=== PATIENT | female | born 1960 | race Caucasian/White ===

== ENCOUNTER → 2020-05-13 08:11 | Outpatient (BNVA) | payer OTHER, SELFPAY | PROVIDERS: PCP Internal Medicine; Visit Provider Obstetrics & Gynecology ==

== ENCOUNTER 2020-08-03 07:50 | Outpatient (REF) | payer OTHER, SELFPAY ==
--- NOTE | ~2020-08-03 | MM_ITS ---
EXAMINATION: MM SCREENING DIGITAL BREAST TOMOSYNTHESIS, BILATERAL CLINICAL INFORMATION: Screening. Asymptomatic. The lifetime risk of breast cancer based on the Tyrer-Cuzick Model is 9%. COMPARISON: Mammography: 05/19/2019, 03/12/2018, 02/13/2017 TECHNIQUE: Digital breast tomosynthesis is performed in both the craniocaudal and mediolateral oblique views along with computer-aided detection (CAD). Synthesized 2D images are generated from the tomosynthesis. Additional right MLO view is provided. FINDINGS: There are scattered areas of fibroglandular density (ACR BI-RADS breast composition Category b). There are no significant masses, abnormal calcifications, or other abnormalities. Parenchymal pattern is similar to prior exams. No developing density. No significant changes. MM/MM tomosynthesis screening BI IMPRESSION: No mammographic evidence of malignancy. ASSESSMENT: BI-RADS 1: Negative RECOMMENDATION: Routine annual mammography screening. This patient's information was entered into a reminder system with a target due date for their next mammogram.
== END 2020-08-03 07:51 | disposition home or self-care (01) ==
LOC: HO.MAMMO 07:50
PROVIDERS: Visit Provider Obstetrics & Gynecology
DX: Z12.31 Encounter for screening mammogram for malignant neoplasm of breast (principal)
CPT/HCPCS: 77063; 77067

== ENCOUNTER 2021-06-05 08:23 | Outpatient (REF) | payer OTHER, SELFPAY ==
[2021-06-07 09:51] LABS: HPV mRNA E6/E7 rflx Not Detected (Not Detected)
== END 2021-06-05 08:24 | disposition home or self-care (01) ==
LOC: HO.LAB 08:23
PROVIDERS: PCP Internal Medicine; Visit Provider Obstetrics & Gynecology
DX: Z01.419 Encounter for gynecological examination (general) (routine) without abnormal findings (principal); Z11.51 Encounter for screening for human papillomavirus (HPV)
CPT/HCPCS: 87624; 88142

== ENCOUNTER 2021-08-09 07:46 | Outpatient (REF) | payer OTHER, SELFPAY ==
--- NOTE | ~2021-08-09 | MM_ITS ---
EXAMINATION: MM SCREENING DIGITAL BREAST TOMOSYNTHESIS, BILATERAL CLINICAL INFORMATION: Screening. Asymptomatic. The lifetime risk of breast cancer based on the Tyrer-Cuzick Model is 9%. COMPARISON: Mammography: 08/03/2020, 05/19/2019, 03/12/2018 TECHNIQUE: Digital breast tomosynthesis is performed in both the craniocaudal and mediolateral oblique views along with computer-aided detection (CAD). Synthesized 2D images are generated from the tomosynthesis. FINDINGS: There are scattered areas of fibroglandular density (ACR BI-RADS breast composition Category b). There are no significant masses, abnormal calcifications, or other abnormalities. Parenchymal pattern is similar to prior exams. There is a probable intramammary node again seen mid 5:30 right breast. The axilla and skin contours are unremarkable. MM/MM tomosynthesis screening BI IMPRESSION: No mammographic evidence of malignancy. ASSESSMENT: BI-RADS 2: Benign RECOMMENDATION: Routine annual mammography screening. This patient's information was entered into a reminder system with a target due date for their next mammogram.
== END 2021-08-09 07:47 | disposition home or self-care (01) ==
LOC: HO.MAMMO 07:46
PROVIDERS: Visit Provider Obstetrics & Gynecology
DX: Z12.31 Encounter for screening mammogram for malignant neoplasm of breast (principal)
CPT/HCPCS: 77063; 77067

== ENCOUNTER → 2022-07-13 07:56 | Outpatient (BNVA) | payer OTHER, SELFPAY | PROVIDERS: PCP Family Medicine; Visit Provider Obstetrics & Gynecology | DX: Z13.89 Encounter for screening for other disorder (principal) ==

== ENCOUNTER 2022-08-15 07:40 | Outpatient (REF) | payer OTHER, SELFPAY ==
--- NOTE | ~2022-08-15 | MM_ITS ---
EXAMINATION: MM SCREENING DIGITAL BREAST TOMOSYNTHESIS, BILATERAL CLINICAL INFORMATION: Screening. Asymptomatic. The lifetime risk of breast cancer based on the Tyrer-Cuzick Model is 9%. COMPARISON: Mammography: 08/09/2021, 08/03/2020, 05/19/2019 TECHNIQUE: Digital breast tomosynthesis is performed in both the craniocaudal and mediolateral oblique views along with computer-aided detection (CAD). Synthesized 2D images are generated from the tomosynthesis. Additional right CC view is provided. FINDINGS: There are scattered areas of fibroglandular density (ACR BI-RADS breast composition Category b). There are no significant masses, abnormal calcifications, or other abnormalities. Parenchymal pattern is similar to prior studies. There is no developing density or architectural abnormality. The axilla and skin contours are unremarkable. No significant changes. MM/MM tomosynthesis screening BI IMPRESSION: No mammographic evidence of malignancy. ASSESSMENT: BI-RADS 1: Negative RECOMMENDATION: Routine annual mammography screening. This patient's information was entered into a reminder system with a target due date for their next mammogram.
== END 2022-08-15 07:41 | disposition home or self-care (01) ==
LOC: HO.MAMMO 07:40
PROVIDERS: PCP Family Medicine; Visit Provider Family Medicine
DX: Z12.31 Encounter for screening mammogram for malignant neoplasm of breast (principal)
CPT/HCPCS: 77063; 77067

== ENCOUNTER 2023-07-22 07:55 | Outpatient (AMB) | payer OTHER, SELFPAY ==
--- NOTE | 2023-07-22 08:01 | MHC.OFFVIS ---
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 No complaints. Last Pap/HPV was negative in 06/17 Last Mammogram was BI-RADS 1 in 08/16, the patient is scheduled for next screening mammogram in 08/17 Last Colonoscopy was at the age of 53, the patient will be due for a next screening colonoscopy next year [facility] Medical History Dyslipidemia Diabetes HTN (hypertension) Surgical History History of surgical removal of meniscus of knee History of hysteroscopy History of Family History Father Diabetes HTN (hypertension) Mother Diabetes Social History Household Members: Spouse Housing: House Alcohol intake: current Alcohol intake frequency: holidays/special occasions only Patient Tobacco Use Status: Current someday Tobacco user Cigarettes Per Day: 5 Years Smoked: 35 Current occupational status: employed 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 Sexually active: Yes Sexual orientation: Straight/Heterosexual Gender identity: Female Female Reproductive History Menstrual Age of Menarche: 13 Total pregnancies: 1 Full term: 1 Number of Living Children: 1 Date of last pap smear: 06/06/21 Date of Mammogram: 08/15/22 Review of Systems Const All systems reviewed & are unremarkable except as noted in HPI and below Card Reports as per HPI Resp Reports as per HPI GI Reports as per HPI and Reports no additional complaints Reports as per HPI Physical Exam Vital Signs: BMI result Body Mass Index 45.7 Const General: cooperative, healthy appearing and comfortable Chest Chest palpation & inspection: normal inspection of the chest and normal palpation of entire chest wall Breast/axilla inspection: normal inspection of the breasts and normal inspection of the axillae Breast/axilla palpation: normal palpation of the breasts, normal palpation of the axillae and no axillary lymphadenopathy Resp Effort & Inspection: normal respiratory effort Auscultation: clear to auscultation bilaterally Percussion: percussion normal Cardio Palpation: normal PMI Rate: regular rate Rhythm: regular rhythm Heart sounds: no murmurs and no rubs Peripheral pulses: Peripheral pulses 2+ throughout GI Inspection: Yes normal to inspection Palpation (GI): Soft to palpation, nontender, no guarding, not rigid and No hepatosplenomegaly present Percussion: Yes normal to percussion Auscultation: normal bowel sounds Rectal Exam - Female: deferred General: Yes bladder normal to palpation External Female Exam: No lesion Speculum Exam - Vagina: normal appearance of the vagina, normal palpation, normal vaginal discharge and not erythematous Speculum Exam - Cervix: normal appearance of the cervix and normal palpation Bimanual exam- vagina & uterus: normal bimanual exam, normal palpation, uterine size normal, bladder normal to palpation, consistency normal and normal palpation Bimanual Exam- Adnexa, other: normal adnexae, no masses and no tenderness Assessment & Plan Assessment & Plan (1) Well woman exam: Code(s): Z01.419 - Encounter for gynecological examination (general) (routine) without abnormal findings Plan: Co testing not indicated this. Counseled the patient about the recommended dietary allowance of 1200 mg of Calcium & 600 IU of vitamin D. Mammogram scheduled for 08/17. The patient was instructed to perform monthly self-breast exams and schedule annual exam in a year. All questions answered and the patient verbalized understanding. Coding Level of Care Code Est Pt Prev Care 40-64y(95070) Diagnoses Well woman exam Z01.419
[2023-07-22 08:06] VITALS: BP 120/70; BMI 45.7
== END 2023-07-22 08:25 | disposition home or self-care (01) ==
PROVIDERS: PCP Family Medicine; Visit Provider Obstetrics & Gynecology
DX: Z01.419 Encounter for gynecological examination (general) (routine) without abnormal findings (principal)
CPT/HCPCS: 99396

== ENCOUNTER → 2023-07-22 07:55 | Outpatient (BNVA) | payer OTHER, SELFPAY | PROVIDERS: PCP Family Medicine; Visit Provider Obstetrics & Gynecology ==

== ENCOUNTER 2023-08-20 07:15 | Outpatient (REF) | payer OTHER, SELFPAY | END 2023-08-20 07:16 | disposition home or self-care (01) | LOC: HO.MAMMO 07:15 | PROVIDERS: PCP Family Medicine; Visit Provider Family Medicine | DX: Z12.31 Encounter for screening mammogram for malignant neoplasm of breast (principal) | CPT/HCPCS: 77063; 77067 ==

== ENCOUNTER → 2023-08-20 07:45 | Outpatient (BNV) | payer OTHER, SELFPAY | PROVIDERS: PCP Family Medicine; Visit Provider Radiology Diagnostic Radiology | DX: Z12.31 Encounter for screening mammogram for malignant neoplasm of breast (principal) | CPT/HCPCS: 77063; 77067 ==

== ENCOUNTER 2024-08-31 07:19 | Outpatient (REF) | payer OTHER, SELFPAY ==
--- OUTSIDE RECORDS SUMMARY | 2024-08-31 07:21 | XMS_ITS | Clinical Summary ---
Author Organization [facility] Address [address] [place] [address] Phone Care Team Providers Care Licensed Clinician Name Role Phone Franky Guerrero MD Primary Care Pr ovider Allergies No known active allergies Medications medical supply, miscellaneous (MISCELLANEOUS MEDICAL SUPPLY MISC) CPAP Inhale into the lungs. Regional pressure 8-12 Active fexofenadine (MAZIN) 180 mg tablet Take 1 Tablet by mouth daily. Active metFORMIN XR (GLUCOPHAGE-XR) 500 mg 24 hr tabletIndications :Type 2 diabetes mellitus without complications ([facility] V24, [facility] V28) TAKE 2 TABLETS BY MOUTH DAILY (WITH BREAKFAST). 180 tablet 1 06/27/19 25 Active tirzepatide, weight loss, (Zepbound) 2.5 mg/0.5 mL injectionIndicati ons:Type 2 diabetes mellitus with diabetic microalbuminuria, without long-term current use of insulin ([facility] V24, [facility] V28),Morbid obesity with BMI of 45.0-49.9, adult ([facility] V24, [facility] V28),Obstructive sleep apnea Inject 0.5 mL (2.5 mg total) under the skin every 7 (seven) days. 2 mL 08/17/19 25 Active fluticasone propionate (FLONASE) 50 mcg/actuation nasal sprayIndications: Allergic rhinitis, unspecified seasonality, unspecified trigger Administer 1 spray into each nostril 2 (two) times a day. Shake gently. Before first use, prime pump. After use, clean tip and replace cap. 16 g 1 08/17/19 25 026 Active atorvastatin (LIPITOR) 40 mg tabletIndications :Hyperlipidemia with target LDL less than 70 Take 1 tablet (40 mg total) by mouth at bedtime. at bedtime. 90 tablet 1 08/17/19 25 Active lisinopril (PRINIVIL,ZESTRIL ) 40 mg tabletIndications :Primary hypertension Take 1 tablet (40 mg total) by mouth 1 (one) time each day. 90 each 1 08/17/19 25 Active atorvastatin (LIPITOR) 40 mg tabletIndications :Hyperlipidemia with target LDL less than 70 Take 1 tablet (40 mg total) by mouth at bedtime. at bedtime. 90 tablet 1 03/29/20 24 025 Discontin ued(Reord er) bisacodyL (DULCOLAX) 5 mg EC tablet Take 2 tablets by mouth right before beginning bowel prep. See instructions provided by the office 2 tablet 07/14/19 25 025 Discontin ued(Thera py completed ) polyethylene glycol (Golytely) 236-22.74-6.74 -5.86 gram solution Take 4L by mouth once for one dose. May substitue any PEG. Starting at 6PM the night before your procedure drink 1 8oz glasses at your own pace until you complete half of the gallon. Finish 2nd half of the gallon 5 hours before your procedure. 4000 mL 07/14/19 25 025 Discontin ued(Thera py completed ) lisinopril (PRINIVIL,ZESTRIL ) 40 mg tablet Take 1 tablet (40 mg total) by mouth 1 (one) time each day. 90 each 1 07/14/19 25 025 Discontin ued(Reord er) Active Problems Problem Noted Date Diagnosed Date Systolic murmur 08/16/2024 Assessment & Plan (08/16/2024 10:09 AM EDT): Echocardiogram is as above and within normal limits Morbid obesity with BMI of 4 5.0-49.9, adult (CMS/HCC V24, CMS/HCC V28) 04/17/2024 Assessment & Plan (08/16/2024 10:09 AM EDT): Start Zepbound weekly Orders: tirzepatide, weight loss, (Zepbound) 2.5 mg/0.5 mL injection; Inject 0.5 mL (2.5 mg total) under the skin every 7 (seven) days. Assessment & Plan (04/17/2024 9:01 AM EST): As above Orders: Thyroid stimulating hormone with reflex to free t4 and free t3; Future Tobacco use disorder 04/17/2024 Assessment & Plan (08/16/2024 10:09 AM EDT): Smoking cessation counseling provided. She plans to quit cigarettes cold turkey very soon Assessment & Plan (04/17/2024 9:01 AM EST): Smoking cessation counseling provided CKD (chronic kidney disease) stage 2, GFR 60-89 ml/min 01/07/2022 Assessment & Plan (08/16/2024 10:09 AM EDT): Stable. Last GFR was 63. Will update labs Orders: Comprehensive metabolic panel; Future Assessment & Plan (04/17/2024 9:01 AM EST): Stable. Last Gfr 63 in december Hyperlipidemia with target LDL less than 70 07/26 Assessment & Plan (08/16/2024 10:09 AM EDT): Continue atorvastatin. Orders: Lipid panel with reflex to direct LDL; Future Comprehensive metabolic panel; Future atorvastatin (LIPITOR) 40 mg tablet; Take 1 tablet (40 mg total) by mouth at bedtime. at bedtime. Assessment & Plan (04/17/2024 9:01 AM EST): Her Last LDL was 56. Continue Atorvastatin 40mg daily. Type 2 diabetes mellitus wit h diabetic microalbuminuria, without long-term current use of insulin ([facility] V24, [facility] V28) 08/17/2018 Assessment & Plan (08/16/2024 10:09 AM EDT): Last A1c was 7.2. Her diabetes can be better controlled For now, continue metformin 1000 mg daily. Will start Zepbound weekly to help with weight loss and also sleep apnea. Counseled on the possible side effects of the medication If she is unable to get the medication, she will let me know and metformin will be increased Orders: Hemoglobin A1c; Future tirzepatide, weight loss, (Zepbound) 2.5 mg/0.5 mL injection; Inject 0.5 mL (2.5 mg total) under the skin every 7 (seven) days. Assessment & Plan (04/17/2024 9:01 AM EST): Continue metformin 1000mg daily Start some routine exercise Continue to try to follow diabetic diet Advised that if A1c is still greater than 7, we can consider wegovy which will also be helpful for weight loss Orders: Hemoglobin A1c; Future Diabetes Foot Exam Obstructive sleep apnea 09/02/2017 Overview (03/10/2024): [facility] Home Polysomnogram: Date 08/29/2017; AHI 21, Unclassified apneas 42; Obstructive apneas 0; Central apneas 0; Mixed apneas 0; hypopneas 99; average oxygen saturation 91% (lowest 69% with saturations <88% for 5% or more of study) [facility] Polysomnogram treatment study. Date 11/11/2017. SE 86 % SM 90 %; spent 41 % of the study in REM. On CPAP @ 10; RDI 2 (AHI 2), Central apneas 1; Obstructive apneas 0; Mixed apneas 0; hypopneas 0; RERAs 0; and, average oxygen saturation was 91%. For the entire study, PLMs ~46. - Obstructive Sleep Apnea - moderate; mostly hypopneas with unclassified apneas; without sleep related hypoventilation by 2018 home polysomnogram. Assessment & Plan (08/16/2024 10:09 AM EDT): Continue CPAP nightly. Start Zepbound weekly Orders: tirzepatide, weight loss, (Zepbound) 2.5 mg/0.5 mL injection; Inject 0.5 mL (2.5 mg total) under the skin every 7 (seven) days. Assessment & Plan (04/17/2024 9:01 AM EST): Continue CPAP nightly Hypertension 06/24/2009 Assessment & Plan (08/16/2024 10:09 AM EDT): Blood pressure is well-controlled. Continue lisinopril Orders: lisinopril (PRINIVIL,ZESTRIL) 40 mg tablet; Take 1 tablet (40 mg total) by mouth 1 (one) time each day. Assessment & Plan (04/17/2024 9:01 AM EST): Well controlled. Continue lisinopril 40mg daily Allergic rhinitis 10/04/2007 Assessment & Plan (08/16/2024 10:09 AM EDT): Start Flonase twice daily. Continue Mazin daily Orders: fluticasone propionate (FLONASE) 50 mcg/actuation nasal spray; Administer 1 spray into each nostril 2 (two) times a day. Shake gently. Before first use, prime pump. After use, clean tip and replace cap. Assessment & Plan (04/17/2024 9:01 AM EST): Stable. Continue mazin PRN Resolved Problems Problem Noted Date Diagnosed Date Resolved Date Obesity (BMI 30-39.9) 02/18/20162023 Encounters Date Type Department Care Team Description 08/16/2024 9:45 AM EDT Office Visit Adult Medicine [address] [phone] Franky Guerrero MD Type 2 diabetes mellitus with diabetic microalbuminuria, without long-term current use of insulin ([facility] V24, [facility] V28) (Primary Dx); Morbid obesity with BMI of 45.0-49.9, adult (CMS/HCC V24, CMS/HCC V28); Hyperlipidemia with target LDL less than 70; Primary hypertension; Tobacco use disorder; Obstructive sleep apnea; Allergic rhinitis, unspecified seasonality, unspecified trigger; CKD (chronic kidney disease) stage 2, GFR 60-89 ml/min; Chronic cough; Dyspnea on exertion; Systolic murmur 07/27/2024 12:07 PM EDT Anesthesia Event [facility] [address] [place] [address] Joey Patel MD 07/27/2024 10:55 AM EDT - 07/27/2024 11:59 PM EDT Hospital Encounter [facility] [address] [place] [address] Reyna Higgins MD Steele, Matthew G, CRNA Colon cancer screening Discharge Disposition: Home or Self Care 07/05/2024 3:00 PM EDT Ancillary Procedure [facility] [address] [place] [address] Systolic murmur from Last 3 Months Immunizations Name Administration Dates Next Due Influenza Quadravalent, MDCK , 0.5ml, preservative free (Flucelvax) 6mo and older 03/05/2023,01/23/2021,01/18/2020,2018 Influenza trivalent, 0.5mL, preservative free (Fluarix; FluLaval; Fluzone) ages 6mo and older (Afluria) 3 years and older 02/10/2024 Influenza trivalent, with preservative (Fluzone; Afluria) 6mo and older 01/30/2015,03/12/2014,03/27/2013,2009 Pneumococcal conjugate 20 va lent (Prevnar 20, PCV 20) 2mo and older 03/05/2023 Td Tetanus diptheria (Tdvax) 7yo and older 01/23/2021 Tdap Tetanus diptheria acell ular pertussis (Boostrix; Adacel) 7yo and older 12/25/2009 Surgical History Surgery Date Site/Laterality Comments SECTION 03/15/1993 PROCEDURE: CO DELIVERY ONLY; COMMENT: no complications COLONOSCOPY W/ POLYPECTOMY 02/05/2014 PROCEDURE: CO COLSC FLX W/RMVL OF TUMOR POLYP LESION SNARE TQ; COMMENT: 2 dimin polyps @20-22 cm - snared-> both hyperplastic OTHER SURGICAL HISTORY 05/18/2022 Right PROCEDURE: CO ARTHRS KNE SURG W/MENISCECTOMY MED/LAT W/SHVG; COMMENT: [facility]OS Medical History Medical History Date Comments Allergic rhinitis 10/04/2007 DX:Allergic rh initis Sleep apnea Hyperlipidemia Hypertension Diabetes mellitus ([facility] V24, [facility] V28) Family History Medical History Relation Name Comments Hypertension Father Lung cancer Father smoker Heart attack Mother age 58 Breast cancer Neg Hx Colon cancer Neg Hx Relation Name Status Comments Brother 1 Alive DMII Brother 2 Alive estranged Father 1997 - Bone Can cer; DMII, HTN Maternal Grandfather ? Maternal Grandmother ? Mother (Age 58) 1994 - [place] Paternal Grandfather ? Paternal Grandmother DMII Sister Alive A&W Son Alive A&W Social History Tobacco Use Types Packs/Day Years Used Date Smoking Tobacco: Every Day Cigarettes 0.2 42.3 Started: 04/26/1982 Smokeless Tobacco: Never Tobacco Cessation:Ready to Q uit: Not Asked; Counseling Given: Not Answered Alcohol Use Standard Drinks/Week Comments Yes 0 (1 standard drink = 0.6 oz pur e alcohol) Housing Instability Answer Date Recorde d Are you worried that in the next 2 months you may not have stable housing? No 04/10/2024 Food Access & Nutrition Answer Date Rec orded Do you have access to a vari ety of food including fruits and vegetables? Yes 04/10/2024 Access to Healthcare Answer Date Record ed Within the last 3 months, ho w many times did you visit the emergency department for your medical care? 0 04/10/2024 Health Literacy Answer Date Recorded How often do you need to hav e someone help you when you read instructions, pamphlets, or other written material from your doctor or pharmacy? Never 04/10/2024 Caregiver: How often do you need to have someone help you when you read instructions, pamphlets, or other written material from your doctor or pharmacy? Not on file 04/10/2024 Financial Risk Answer Date Recorded How hard is it for you to pa y for the very basics like food, housing, medical care, and air conditioning / heating? Patient declined 04/10/2024 Transportation Answer Date Recorded Has the lack of transportati on kept you from meetings, work, or from getting things needed for daily living? No Has the lack of transportati on kept you from medical appointments or from getting medications? No 04/10/2024 Social Isolation Answer Date Recorded How often do you feel lonely or isolated from th ose around you? Never 04/10/2024 Food Risk Answer Date Recorded Within the past 12 months we worried whether our food would run out before we got money to buy more. Never true 04/10/2024 Within the past 12 months th e food we bought just didn't last and we didn't have money to get more. Never true 04/10/2024 Dependent Care Answer Date Recorded Do you need help finding or paying for care for your loved ones. For example, children's nursery assistant or elderly care for an older adult? No 04/10/2024 Education Answer Date Recorded Do you think completing more education or training, like finishing a GED, going to college, or learning a trade, would be helpful for you? N/A 04/10/2024 Employment and Income Answer Date Recor ded During the last four weeks, have you been actively looking for work? No 04/10/2024 Living Situation Answer Date Recorded What is your living situation? 1 06/11/2023 Interpersonal Safety Answer Date Record ed Physical Abuse 07/27/2024 Verbal Abuse 07/27/2024 Comments No Sex and Gender Information Value Date Recorded Sex Assigned at Female 02/26/2024 4:30 PM EDT Legal Sex Female 5:16 AM EST Gender Identity Female 02/26/2024 4:30 PM EDT Sexual Orientation Straight 07/27/2024 10 :52 AM EDT Obstetrics History Last Filed Vital Signs Vital Sign Reading Time Taken Comments Blood Pressure 129/67 08/16/2024 9:18 AM EDT Pulse 90 08/16/2024 9:18 AM EDT Temperature 36.3 ??C (97.4 ??F) 08/16/2024 9:18 AM ED T Respiratory Rate 16 08/16/2024 9:18 AM EDT Oxygen Saturation 93% 08/16/2024 9:18 AM EDT Inhaled Oxygen Concentration - - Weight 113 kg (250 lb) 08/16/2024 9:18 AM EDT Height 158.8 cm (5' 2.52 ) 08/16/2024 9:18 AM ED T Body Mass Index 44.97 08/16/2024 9:18 AM EDT Plan of Treatment Upcoming Encounters Date Type Department Care Team (Late st Contact Info) Description 12/20/2024 8:00 AM EDT Office Visit Adult Medicine [facility] [address] [place] [phone] Franky Guerrero MD [address] [place] [phone] Health Maintenance Due Date Last Done Comments Zoster Vaccines (1 of 2) 2012 HIV Screening 04/04/2022 RSV Immunization Adult Patients (1 - Risk 60-74 years 1-dose series) 2022 Cervical Cancer Screening: Pap Smear 06/15/2024 06/15/2021 Diabetes: Blood Sugar Control Test (HGBA1C) 12/20/2024 06/22/2024, 01/06/2024, 01/06/2024 Diabetes: Annual Retina Eye Exam 12/23/2024 12/24/2023 Diabetes: Annual Urine Albumin-Creatinine Ratio (uACR) 01/05/2025 01/06/2024 Diabetes: Annual GFR (Glomerular Filtration Rate) 01/05/2025 01/06/2024, 01/06/2024 Hypertension/CHF/CAD Annual BMP Blood Test 01/05/2025 01/06/2024, 01/06/2024 Social Influencers of Health Screening 04/10/2025 04/10/2024 Diabetes: Annual Foot Exam 04/17/2025 04/17/2024 Breast Cancer Screening 07/30/2025 07/31/2023 Depression Screening 08/09/2025 08/09/2024 Cholesterol Screening (Lipid Panel) 01/05/2029 01/06/2024, 01/06/2024 DTaP,Tdap,and Td Vaccines (3 - Td or Tdap) 01/23/2031 01/23/2021, 12/25/2009 Colorectal Cancer Screening: Colonoscopy 07/27/2034 07/27/2024 Hepatitis C Screening Completed 12/20/2012 COVID-19 Vaccine Discontinued 09/09/2020, 08/19/2020 Pneumococcal Vaccine: 50+ Years Completed 03/05/2023 Pneumococcal Vaccine: Pediatrics (0 to 5 Years) and At-Risk Patients (6 to 64 Years) Completed 03/05/2023 Influenza Vaccine Completed 02/10/2024, , 01/23/2021, Additional history exists HIB Vaccines Aged Out No longer eligi ble based on patient's age to complete this topic HPV Vaccines Aged Out No longer eligi ble based on patient's age to complete this topic Hepatitis A Vaccines Aged Out No long er eligible based on patient's age to complete this topic Hepatitis B Vaccines Aged Out No long er eligible based on patient's age to complete this topic IPV Vaccines Aged Out No longer eligi ble based on patient's age to complete this topic MMR Vaccines Aged Out No longer eligi ble based on patient's age to complete this topic Meningococcal ACWY Vaccine Aged Out N o longer eligible based on patient's age to complete this topic Meningococcal B Vaccine Aged Out No l onger eligible based on patient's age to complete this topic RSV Immunization Patients Under 20 months Aged Out No longer eligible based on patient's age to complete this topic Varicella Vaccines Aged Out No longer eligible based on patient's age to complete this topic Procedures Procedure Name Priority Date/Time Associated Diagnosis Comments COLONOSCOPY Routine 07/27/2024 12:24 PM EDT Colon cancer screening TRANSTHORACIC ECHOCARDIOGRAM (TTE) COMPLETE W/ CONTRAST Routine 07/05/2024 3:43 PM EDT Systolic murmur THYROID STIMULATING HORMONE WITH REFLEX TO FREE T4 AND FREE T3 Routine 06/22/2024 7:39 AM EST Morbid obesity with BMI of 45.0-49.9, adult ([facility] V24, [facility] V28) HEMOGLOBIN A1C Routine 06/22/2024 7:39 AM EST Type 2 diabetes mellitus without complication, without long-term current use of insulin ([facility] V24, [facility] V28) URINE ALBUMIN CREATININE RATIO Routine 01/06/2024 ANNUAL BMP BLOOD TEST Routine 01/06/2024 LIPID PANEL Routine 01/06/2024 DIABETES EYE EXAM Routine 12/24/2023 PAP SMEAR Routine 06/15/2021 HEPATITIS C SCREENING Routine 12/20/2012 from Last 3 Months or Most Recently Relevant to Health Maintenance Results * COLONOSCOPY Anesthesia - MAC; [facility] ENDOSCOPY (07/27/2024 12:24 PM EDT) Anatomical Region Laterality Modality Endoscopy 07/27/2024 12:0 7 PM EDT Impressions 07/27/2024 12:24 PM EDT - The entire examined colon is normal on direct and ? retroflexion views. ? - No specimens collected. Recommendation: ?- Discharge patient to home. ? - Repeat colonoscopy in 10 years for screening ? purposes. Narrative 07/27/2024 12:24 PM EDT [facility] GI Patient Name: Celia Farfan Procedure Date: 07/27/2024 12:07 PM Date of : 1960 Age: 63 Gender: Female Note Status: Finalized Attending MD: Reyna Higgins MD, Procedure Date No Time: 07/27/2024 Procedure: ? Colonoscopy Indications: ? Screening for colorectal malignant neoplasm Providers: ? Reyna Higgins MD Referring MD: ?Reyna Higgins MD Medicines: ? Monitored Anesthesia Care Complications: ? No immediate complications. Estimated Blood Loss: ? Estimated blood loss: none. Procedure: ? Pre-Anesthesia Assessment: ? - Prior to the procedure, a History and Physical was ? performed, and patient medications and allergies were ? reviewed. The patient is competent. The risks and ? benefits of the procedure and the sedation options and ? risks were discussed with the patient. All questions ? were answered and informed consent was obtained. ? Patient identification and proposed procedure were ? verified by the physician, the nurse, the farm equipment engine mechanic ? and the vascular ultrasound technician in the pre-procedure area in the ? endoscopy suite. Mental Status Examination: alert and ? oriented. Airway Examination: normal oropharyngeal ? airway and neck mobility. Respiratory Examination: ? clear to auscultation. CV Examination: normal. ? Prophylactic Antibiotics: The patient does not require ? prophylactic antibiotics. Prior Anticoagulants: The ? patient has taken no anticoagulant or antiplatelet ? agents. ASA Grade Assessment: III - A patient with ? severe systemic disease. After reviewing the risks and ? benefits, the patient was deemed in satisfactory ? condition to undergo the procedure. The anesthesia ? plan was to use monitored anesthesia care (MAC). ? Immediately prior to administration of medications, ? the patient was re-assessed for adequacy to receive ? sedatives. The heart rate, respiratory rate, oxygen ? saturations, blood pressure, adequacy of pulmonary ? ventilation, and response to care were monitored ? throughout the procedure. The physical status of the ? patient was re-assessed after the procedure. ? After I obtained informed consent, the scope was ? passed under direct vision. Throughout the procedure, ? the patient's blood pressure, pulse, and oxygen ? saturations were monitored continuously. The Olympus ? Colonoscope was introduced through the anus and ? advanced to the cecum, identified by appendiceal ? orifice and ileocecal valve. The colonoscopy was ? performed without difficulty. The patient tolerated ? the procedure poorly due to the patient's body ? habitus, the patient's respiratory instability and the ? patient's comorbid medical conditions. The quality of ? the bowel preparation was excellent. Findings: ?The perianal and digital rectal examinations were ? normal. ? The entire examined colon appeared normal on direct ? and retroflexion views. Procedure Code(s): ? --- Professional --- ? G0121, Colorectal cancer screening; colonoscopy on ? individual not meeting criteria for high risk Diagnosis Code(s): ? --- Professional --- ? Z12.11, Encounter for screening for malignant neoplasm ? of colon CPT copyright 2020 [employer]. All rights reserved. The codes documented in this report are preliminary and upon orthopedic physician assistant review may be revised to meet current compliance requirements. Reyna Higgins MD 07/27/2024 12:24:04 PM This report has been signed electronically.Reyna Higgins MD Number of Addenda: 0 Note Initiated On: 07/27/2024 12:07 PM Scope Withdrawal Time: 0 hours 4 minutes 58 seconds Scope In: 12:15:05 PM Scope Out: 12:22:09 PM ? Endoscopy Department at [facility] - [address] [place] [address], ? [place] [address] Procedure Note Reyna Higgins MD - 07/27/2024 [facility] GI Patient Name: Celia Farfan Procedure Date: 07/27/2024 12:07 PM Date of : 1960 Age: 63 Gender: Female Note Status: Finalized Attending MD: Reyna Higgins MD, Procedure Date No Time: 07/27/2024 Procedure: Colonoscopy Indications: Screening for colorectal malignant neoplasm Providers: Reyna Higgins MD Referring MD: Reyna Higgins MD Medicines: Monitored Anesthesia Care Complications: No immediate complications. Estimated Blood Loss: Estimated blood loss: none. Procedure: Pre-Anesthesia Assessment: - Prior to the procedure, a History and Physicalwas performed, and patient medications and allergieswere reviewed. The patient is competent. The risks and benefits of the procedure and the sedation optionsand risks were discussed with the patient. Allquestions were answered and informed consent was obtained. Patient identification and proposed procedure were verified by the physician, the nurse, theanesthetist and the vascular ultrasound technician in the pre-procedure area in the endoscopy suite. Mental Status Examination: alertand oriented. Airway Examination: normal oropharyngeal airway and neck mobility. Respiratory Examination: clear to auscultation. CV Examination: normal. Prophylactic Antibiotics: The patient does notrequire prophylactic antibiotics. Prior Anticoagulants: The patient has taken no anticoagulant or antiplatelet agents. ASA Grade Assessment: III - A patient with severe systemic disease. After reviewing the risksand benefits, the patient was deemed in satisfactory condition to undergo the procedure. The anesthesia plan was to use monitored anesthesia care (MAC). Immediately prior to administration of medications, the patient was re-assessed for adequacy to receive sedatives. The heart rate, respiratory rate, oxygen saturations, blood pressure, adequacy of pulmonary ventilation, and response to care were monitored throughout the procedure. The physical status ofthe patient was re-assessed after the procedure. After I obtained informed consent, the scope was passed under direct vision. Throughout theprocedure, the patient's blood pressure, pulse, and oxygen saturations were monitored continuously. TheOlympus Colonoscope was introduced through the anus and advanced to the cecum, identified by appendiceal orifice and ileocecal valve. The colonoscopy was performed without difficulty. The patient tolerated the procedure poorly due to the patient's body habitus, the patient's respiratory instability andthe patient's comorbid medical conditions. The qualityof the bowel preparation was excellent. Findings: The perianal and digital rectal examinations were normal. The entire examined colon appeared normal on direct and retroflexion views. Procedure Code(s): --- Professional --- G0121, Colorectal cancer screening; colonoscopy on individual not meeting criteria for high risk Diagnosis Code(s): --- Professional --- Z12.11, Encounter for screening for malignantneoplasm of colon CPT copyright 2020 [employer]. All rights reserved. The codes documented in this report are preliminary and upon orthopedic physician assistant reviewmay be revised to meet current compliance requirements. Reyna Higgins MD 07/27/2024 12:24:04 PM This report has been signed electronically.Reyna Higgins MD Number of Addenda: 0 Note Initiated On: 07/27/2024 12:07 PM Scope Withdrawal Time: 0 hours 4 minutes 58 seconds Scope In: 12:15:05 PM Scope Out: 12:22:09 PM Endoscopy Department at [facility] - [address] [place] [phone] IMPRESSION: - The entire examined colon is normal on direct and retroflexion views. - No specimens collected. Recommendation: - Discharge patient to home. - Repeat colonoscopy in 10 years for screening purposes. us Reyna Higgins MD GI~PROCEDURE ORDERABLES Fin al Result * (ABNORMAL) TRANSTHORACIC ECHOCARDIOGRAM (TTE) COMPLETE W/ CONTRAST (07/05/2024 3:43 PM EDT) LV EDV (A2C) 87 mL CV PACS LV EDV (A4C) 73 mL CV PACS LV Diastolic Volume (BP) 80 46 - 106 mL CV PACS LV ESV (A2C) 25 mL CV PACS LV ESV (A4C) 22 mL CV PACS LV Systolic Volume (BP) 24 14 - 42 mL CV PACS IVSD 1.0(A) 0.6 - 0.9 cm CV PACS LVIDD 4.5 3.8 - 5.2 cm CV PACS LVIDS 3.0 2.2 - 3.5 cm CV PACS LVOT Diameter 2.1 cm CV PACS LVOT Mean [place] 0.6 m/s CV PACS LVOT Mean Grad 2 mmHg CV PACS LVOT Peak VTI 17.8 cm CV PACS LVOT Peak [place] 0.9 m/s CV PACS LVOT Peak [place] 0.9 m/s CV PACS LVOT Peak Gradient 3 mmHg CV PACS LVPWD 1.0(A) 0.6 - 0.9 cm CV PACS MV E' Tissue Velocity Lateral 10 cm/s CV PACS MV E' Tissue Velocity Septal 7 cm/s CV PACS Ejection Fraction (A2C) 71 % CV PACS Ejection Fraction (A4C) 70 % CV PACS Ejection Fraction (BP) 70 % CV PACS LVOT Area 3.5 cm2 CV PACS LVOT Stroke Volume 62 mL CV PACS Left Atrium Minor [place] 4.6 cm CV PACS Left Atrium Major [place] 4.6 cm CV PACS LA Area Sys (A2C) 11 cm2 CV PACS LA Area Sys (A4C) 12 cm2 CV PACS LA Volume (BP) 24 mL CV PACS RA Area 16.8 cm2 CV PACS RA 2D Volume 46 mL CV PACS AV Mean Gradient 4 mmHg CV PACS Ao VTI 24.0 cm CV PACS AV Peak [place] 1.4 m/s CV PACS AV Peak Gradient 8 mmHg CV PACS AV Area Continuity Equation 2.6 cm2 CV PACS AV Area Peak Velocity 2.3 cm2 CV PACS Aortic Arch 2.9 cm CV PACS Ascending Aorta 3.3 cm CV PACS Aortic Sinus Valsalva 3.6 cm CV PACS IVC Proximal 1.6 cm CV PACS MV Deceleration [place] 3.8 m/s2 CV PACS E Wave Deceleration Time 149 119 - 242 ms CV PACS MV PHT 44 ms CV PACS MV Peak A [place] 0.79 m/s CV PACS MV Peak E [place] 0.57 m/s CV PACS MV Mean Gradient 2 mmHg CV PACS MV VTI 20.6 cm CV PACS Mitral Valve Max Velocity 1.0 m/s CV PACS MV Peak Gradient 4 mmHg CV PACS MV Area PHT 5.0 cm2 CV PACS MV Area Continuity Equation 3.0 cm2 CV PACS PV Acceleration Time 137 ms CV PACS PV Mean Gradient 1 mmHg CV PACS PV VTI 15.7 cm CV PACS PV Peak Velocity 0.9 m/s CV PACS PV Peak Gradient 3 mmHg CV PACS RV Diastolic Basal Dimension 3.4 2.5 - 4.1 cm CV PACS RV S' 11 cm/s CV PACS TAPSE 22 mm CV PACS E/E' Ratio Septal 8 CV PACS E/E' Ratio Averaged 7 CV PACS Relative Wall Thickness ratio 0.44 CV PACS LVOT:AV VTI Index 0.74 CV PACS FS 33 % CV PACS LV Mass 2D 153 g CV PACS MV VTI:LVOT VTI ratio 1.2 CV PACS LVOT flow 208 mL/s CV PACS E/A Ratio 0.7 CV PACS E/E' Ratio Lateral 6 CV PACS BSA 2.24 m2 CV PACS LV Diastolic Volume Index (BP) 38 29 - 61 mL/m2 CV PACS LV Systolic Volume Index (BP) 11 8 - 24 mL/m2 CV PACS LV EDV Index (A4C) 35 mL/m2 CV PACS LV ESV Index (A4C) 10 mL/m2 CV PACS LV EDV Index (A2C) 41 mL/m2 CV PACS LV ESV Index (A2C) 12 mL/m2 CV PACS LA Volume Index (BP) 11 mL/m2 CV PACS LVIDD Index 2.13 cm/m2 CV PACS LVIDS Index 1.42 cm/m2 CV PACS LV Mass Index 2D 73 44 - 88 g/m2 CV PACS LVOT Stroke Index 29 mL/m2 CV PACS RA 2D Volume Index 22 15 - 27 mL/m2 CV PACS CARIE Index (VTI) 1.22 cm2/m2 CV PACS CARIE Index (Pk [place]) 1.09 cm2/m2 CV PACS Ascending Aorta Index 1.56 cm/m2 CV PACS Est. RA Pressure 3 mmHg CV PACS Anatomical Region Laterality Modality Ultrasound Narrative 07/07/2024 2:29 PM EDT ?Left ventricle cavity size is normal. Left ventricular systolic function is in the normal range with an ejection fraction of 65-70%. ?? Normal diastolic function. ?No regional LV wall motion abnormalities noted. ?Left ventricle wall thickness is normal. ?Right ventricle cavity is normal. Right ventricular systolic function is normal. ?No significant valvular abnormality ?Normal atria. ?No prior echo for comparison. Left Ventricle Left ventricle cavity size is normal. Wall thickness is normal. Systolic function is normal with an ejection fraction of 65-70%. There are no regional LV wall motion abnormalities. There is no diastolic dysfunction. Right Ventricle Right ventricle cavity appears normal. Systolic function is normal. Left Atrium Left atrium cavity size is normal. Right Atrium Right atrium cavity is normal. IVC/SVC Inferior vena cava structure is normal. RA pressures is estimated to be 3 mmHg (IVC diameter <21 mm and decreases >50% during inspiration). Mitral Valve The mitral valve was not well visualized. The leaflets are mildly thickened. There is mild annular calcification. There is no significant mitral valve regurgitation. There is no evidence of mitral valve stenosis. Tricuspid Valve The tricuspid valve was not well visualized. Tricuspid valve structure is normal. Unable to assess tricuspid valve regurgitation due to poor Doppler exam. There is no evidence of tricuspid valve stenosis. Cannot assess RVSP. Aortic Valve The aortic valve was not well visualized. Number of aortic valve cusps cannot be determined. There is no regurgitation or stenosis. Pulmonic Valve The pulmonic valve was not well visualized. There is no regurgitation or stenosis. Ascending Aorta The aorta appears normal in size. Pericardium There is an anterior fat pad. There is no pericardial effusion. Study Details Overall the study quality was technically difficult. Definity contrast was given to enhance imaging. Franky Guerrero MD CV ECHO PROCEDUR ES Final Result * Thyroid stimulating hormone with reflex to free t4 and free t3 (06/22/2024 7:39 AM EST) [facility] TSH 2.64 0.40 - 4.00 mcIU/mL LAB CHEMISTRY METHOD 06/22/2024 10:40 AM EST [facility] Blood Venous blood specimen / Unknown Venipuncture / Unknown 06/22/2024 7:39 AM EST 06/22/2024 7:40 AM EST Franky Guerrero MD LAB BLOOD ORDERA BLES Final Result Performing Organization Address [facility]/ZIP Co de Phone Number [facility] [address] [place] [address], [place] [phone] * (ABNORMAL) Hemoglobin A1c (06/22/2024 7:39 AM EST) [facility] Hemoglobin A1C 7.2(H) <6.5 % LAB CHEMISTRY METHOD 06/28/2024 9:04 AM EST [facility] Mean Bld Glu Estim. 160 mg/dL LAB CHEMISTRY METHOD 06/28/2024 9:04 AM EST [facility] Blood Venous blood specimen / Unknown Venipuncture / Unknown 06/22/2024 7:39 AM EST 06/22/2024 7:40 AM EST Franky Guerrero MD LAB BLOOD ORDERA BLES Final Result [facility] [address] [place] [address], [place] [phone] * Urine Albumin Creatinine Ratio (01/06/2024) [facility] Urine Albumin Creatinine Ratio Abstracted Result [facility] Provider HEALTH MAINTENANCE Final Result * Annual BMP Blood Test (01/06/2024) [facility] Annual BMP Blood Test Abstracted Result [facility] Provider HEALTH MAINTENANCE Final Result * Lipid panel (01/06/2024) [facility] LDL/HDL Ratio 3 0 - 4 Triglycerides 137 0 - 150 mg/dL Cholesterol 133 0 - 200 mg/dL HDL 50 >=40 mg/dL LDL Cholesterol 56 0 - 100 mg/dL Blood Venous blood specimen / Unknown Result [facility] Provider LAB BLOOD ORDERABLES Odalis l Result * Diabetes Eye Exam (12/24/2023) [facility] Diabetes: Annual Retina Eye Exam Abstracted Result [facility] Provider HEALTH MAINTENANCE Final Result * Pap Smear (06/15/2021) [facility] Pap smear No Interpretation , Abstracted Result [facility] Provider HEALTH MAINTENANCE Final Result * Hepatitis C Screening (12/20/2012) [facility] Hepatitis C Screening Abstracted Result [facility] Provider HEALTH MAINTENANCE Final Result from Last 3 Months or Most Recently Relevant to Health Maintenance Insurance [facility] Care Teams Licensed Clinician Relationship Specialty Start Date End Date Franky Guerrero MD [address] [facility], [place] PCP - General Internal Medicine 11/17/21
== END 2024-08-31 07:20 | disposition home or self-care (01) ==
LOC: HO.MAMMO 07:19
PROVIDERS: PCP Family Medicine; Visit Provider Family Medicine
DX: Z12.31 Encounter for screening mammogram for malignant neoplasm of breast (principal)
CPT/HCPCS: 77063; 77067

== ENCOUNTER → 2024-08-31 07:45 | Outpatient (BNV) | payer OTHER, SELFPAY | PROVIDERS: PCP Family Medicine; Visit Provider Internal Medicine | DX: Z12.31 Encounter for screening mammogram for malignant neoplasm of breast (principal) | CPT/HCPCS: 77063; 77067 ==

== ENCOUNTER 2024-11-01 07:59 | Outpatient (AMB) | payer OTHER, SELFPAY ==
--- OUTSIDE RECORDS SUMMARY | 2024-11-01 08:02 | XMS_ITS | Clinical Summary ---
Author Organization [facility] Address [address] [place] [address] Phone Care Team Providers Care Supervisor [employer] Name Role Phone Franky Guerrero MD Primary Care Pr ovider Allergies No known active allergies Medications medical supply, miscellaneous (MISCELLANEOUS MEDICAL SUPPLY MISC) CPAP Inhale into the lungs. Regional pressure 8-12 Active fexofenadine (CLAUDINE) 180 mg tablet Take 1 Tablet by mouth daily. Active fluticasone propionate (FLONASE) 50 mcg/actuation nasal sprayIndications: Allergic rhinitis, unspecified seasonality, unspecified trigger Administer 1 spray into each nostril 2 (two) times a day. Shake gently. Before first use, prime pump. After use, clean tip and replace cap. 16 g 1 5 08/17/19 26 Active atorvastatin (LIPITOR) 40 mg tabletIndications :Hyperlipidemia with target LDL less than 70 Take 1 tablet (40 mg total) by mouth at bedtime. at bedtime. 90 tablet 1 5 Active lisinopril (PRINIVIL,ZESTRIL ) 40 mg tabletIndications :Primary hypertension Take 1 tablet (40 mg total) by mouth 1 (one) time each day. 90 each 1 5 Active metFORMIN XR (GLUCOPHAGE-XR) 500 mg 24 hr tabletIndications :Type 2 diabetes mellitus without complications (CMS/HCC V24, CMS/HCC V28) Take 2 tablets (1,000 mg total) by mouth 2 (two) times a day. Do not crush, chew, or split. 180 tablet 1 Active Active Problems Problem Noted Date Diagnosed Date Restrictive lung disease 10/14/2024 Systolic murmur 08/16/2024 Assessment & Plan (08/16/2024 10:09 AM EDT): Echocardiogram is as above and within normal limits Morbid obesity with BMI of 4 5.0-49.9, adult ([facility] V24, [facility] V28) 04/17/2024 Assessment & Plan (08/16/2024 10:09 [...] microalbuminuria, without long-term current use of insulin ([facility] V24, [facility] V28) 08/17/2018 Assessment & Plan (08/16/2024 10:09 [...] Exam Obstructive sleep apnea 09/02/2017 Overview (03/10/2024): [facility] [place] Home Polysomnogram: Date 08/29/2017; AHI 21, Unclassified apneas 42; Obstructive apneas 0; Central apneas 0; Mixed apneas 0; hypopneas 99; average oxygen saturation 91% (lowest 69% with saturations <88% for 5% or more of study) RBM Polysomnogram treatment study. Date 11/11/2017. SE 86 [...] AM EDT): Start Flonase twice daily. Continue Claudine daily Orders: fluticasone propionate (FLONASE) 50 mcg/actuation nasal spray; Administer 1 spray into each nostril 2 (two) times a day. Shake gently. Before first use, prime pump. After use, clean tip and replace cap. Assessment & Plan (04/17/2024 9:01 AM EST): Stable. Continue claudine PRN Resolved Problems Problem Noted Date Diagnosed Date Resolved Date Obesity (BMI 30-39.9) 02/18/20162023 Encounters Date Type Department Care Team Description 10/20/2024 10:00 AM EDT Consult Pulmonolgy - [place] [facility] [address] [place] [phone] Reed Wright MD Obstructive sleep apnea (Primary Dx); Restrictive lung disease; Elevated diaphragm 10/04/2024 7:10 AM EDT - 10/04/2024 11:59 PM EDT Hospital Encounter [facility] Pulmonary [address] [place] [phone] Discharge Disposition: Home or Self Care 10/03/2024 7:15 AM EDT - 10/03/2024 11:59 PM EDT Hospital Encounter [facility] CT Scan [address] [place] [phone] Encounter for screening for lung cancer; Cigarette smoker Discharge Disposition: Home or Self Care 09/19/2024 Telephone Lung Screening Program - [place] [address] [facility] [address] [place] [phone] Shannon Walters [place] Appointment (1st Notification) 08/16/2024 9:45 AM EDT Office Visit Adult Medicine [address] [phone] Franky Guerrero MD Type 2 diabetes mellitus with diabetic microalbuminuria, without long-term current use of insulin ([facility] V24, [facility] V28) (Primary Dx); Morbid obesity with BMI of 45.0-49.9, adult ([facility] V24, [facility] V28); Hyperlipidemia with target LDL less than 70; Primary hypertension; Tobacco use disorder; Obstructive sleep apnea; Allergic rhinitis, unspecified seasonality, unspecified trigger; CKD (chronic kidney disease) stage 2, GFR 60-89 ml/min; Chronic cough; Dyspnea on exertion; Systolic murmur from Last 3 Months Immunizations [...] Surgery Date Site/Laterality Comments SECTION 03/15/1993 PROCEDURE: DE DELIVERY ONLY; COMMENT: no complications COLONOSCOPY W/ POLYPECTOMY 02/05/2014 PROCEDURE: DE COLSC FLX W/RMVL OF TUMOR POLYP LESION SNARE TQ; COMMENT: 2 dimin polyps @20-22 cm - snared-> both hyperplastic OTHER SURGICAL HISTORY 05/18/2022 Right PROCEDURE: DE ARTHRS KNE SURG W/MENISCECTOMY MED/LAT W/SHVG; COMMENT: NEOS Medical History Medical History Date Comments Allergic rhinitis 10/04/2007 DX:Allergic rh initis Sleep apnea Hyperlipidemia Hypertension Diabetes mellitus (CMS/HCC V24, CMS/HCC V28) Family History Medical History Relation Name Comments Hypertension Father Lung cancer Father smoker Heart attack Mother age 58 Breast cancer Neg Hx Colon cancer Neg Hx Relation Name Status Comments Brother 1 Alive DMII Brother 2 Alive estranged Father 1997 - Bone Can cer; DMII, HTN Maternal Grandfather ? Maternal Grandmother ? Mother (Age 58) 1994 - Paternal Grandfather ? Paternal Grandmother DMII Sister Alive A&W Son Alive A&W Social History Tobacco Use Types Packs/Day Years Used Date Smoking Tobacco: Every Day Cigarettes 0.3 42.5 Started: 04/26/1982 Smokeless Tobacco: Never Tobacco Cessation:Ready to Q uit: Not Asked; Counseling Given: Not Answered Comments:Stop smoking in July 2024 Alcohol Use Standard Drinks/Week Comments Yes 0 [...] care for your loved ones. For example, child development assistant or elderly care for an older [...] Sign Reading Time Taken Comments Blood Pressure 140/76 10/20/2024 10:10 AM EDT Pulse 100 10/20/2024 10:10 AM EDT Temperature 36.6 C (97.9 F) 10/20/2024 10:10 AM EDT Respiratory Rate 20 10/20/2024 10:10 AM EDT Oxygen Saturation 94% 10/20/2024 10:10 AM EDT Inhaled Oxygen Concentration - - Weight 114 kg (250 lb 6.4 oz) 10/20/2024 10:10 A M EDT Height 157.5 cm (5' 2 ) 10/20/2024 10:10 AM EDT Body Mass Index 45.8 10/20/2024 10:10 AM EDT Plan of Treatment Upcoming Encounters Date Type Department Care Team (Late st Contact Info) Description 12/06/2024 9:00 AM EDT Appointment [facility] Xray [address] [place] [phone] 12/20/2024 8:00 AM EDT Office Visit Adult Medicine [address] [phone] Franky Guerrero MD [address] [place] [phone] 04/24/2025 8:30 AM EST Consult Pulmonol - [place] [address] [phone] Reed Wright MD [address] [phone] Health Maintenance Due Date Last Done Comments Zoster Vaccines (1 of 2) 1981 HIV Screening 04/04/2022 RSV Immunization Adult Patients (1 - Risk 60-74 years 1-dose series) 2022 Cervical Cancer Screening: Pap Smear 06/15/2024 06/15/2021 Diabetes: Annual Retina Eye Exam 12/23/2024 12/24/2023 Influenza Vaccine (#1) 2024 , 03/05/2023, 01/23/2021, Additional history exists Diabetes: Annual Urine Albumin-Creatinine Ratio (uACR) 01/05/2025 01/06/2024 Social Influencers of Health Screening 04/10/2025 04/10/2024 Diabetes: Annual Foot Exam 04/17/2025 04/17/2024 Diabetes: Blood Sugar Control Test (HGBA1C) 04/28/2025 10/26/2024, 06/22/2024, 01/06/2024, Additional history exists Breast Cancer Screening 07/30/2025 07/31/2023 Depression Screening 08/09/2025 08/09/2024 Diabetes: Annual GFR (Glomerular Filtration Rate) 10/26/2025 10/26/2024, 01/06/2024, 01/06/2024 Hypertension/CHF/CAD Annual BMP Blood Test 10/26/2025 10/26/2024, 01/06/2024, 01/06/2024 Cholesterol Screening (Lipid Panel) 10/26/2029 10/26/2024, 01/06/2024, 01/06/2024 DTaP,Tdap,and Td Vaccines (3 - Td or Tdap) 01/23/2031 01/23/2021, 12/25/2009 Colorectal Cancer Screening: Colonoscopy 07/27/2034 07/27/2024 Hepatitis C Screening Completed 12/20/2012 COVID-19 Vaccine Discontinued 09/09/2020, 08/19/2020 Pneumococcal Vaccine: 50+ Years Completed 03/05/2023 HIB Vaccines Aged Out No longer eligi [...] Procedure Name Priority Date/Time Associated Diagnosis Comments HEMOGLOBIN A1C Routine 10/26/2024 8:04 AM EDT Type 2 diabetes mellitus with diabetic microalbuminuria, without long-term current use of insulin ([facility] V24, [facility] V28) LIPID PANEL WITH REFLEX TO DIRECT LDL Routine 10/26/2024 8:04 AM EDT Hyperlipidemia with target LDL less than 70 COMPREHENSIVE METABOLIC PANEL Routine 10/26/2024 8:04 AM EDT Hyperlipidemia with target LDL less than 70 CKD (chronic kidney disease) stage 2, GFR 60-89 ml/min SPIROMETRY BRONCHODILATION RESPONSIVENESS PRE/POST BRONCHODILATOR ADMINISTRATION Routine 10/04/2024 8:01 AM EDT Chronic cough Dyspnea on exertion CT LUNG SCREENING Routine 10/03/2024 7:2 5 AM EDT Encounter for screening for lung cancer Cigarette smoker COLONOSCOPY Routine 07/27/2024 12:24 PM EDT Colon cancer screening URINE ALBUMIN CREATININE RATIO Routine 01/06/2024 DIABETES EYE EXAM Routine 12/24/2023 PAP SMEAR Routine 06/15/2021 HEPATITIS C SCREENING Routine 12/20/2012 from Last 3 Months or Most Recently Relevant to Health Maintenance Results * Lipid panel with reflex to direct LDL (10/26/2024 8:04 AM EDT) Cholesterol 113 0 - 200 mg/dL LAB CHEMISTRY METHOD 10/26/2024 11:26 AM EDT [facility] Triglycerides 93 0 - 150 mg/dL LAB CHEMISTRY METHOD 10/26/2024 11:26 AM EDT [facility] HDL 46 >=40 mg/dL LAB CHEMISTRY METHOD 10/26/2024 11:26 AM EDT [facility] LDL Calculated 48 0 - 100 mg/dL LAB CHEMISTRY METHOD 10/26/2024 11:26 AM EDT [facility] VLDL Cholesterol Hiram 18.6 mg/dL LAB CHEMISTRY METHOD 10/26/2024 11:26 AM EDT [facility] Non HDL Chol. (LDL+VLDL) 67 <145 mg/dL LAB CHEMISTRY METHOD 10/26/2024 11:26 AM EDT [facility] Chol/HDL Ratio 2.5 0.0 - 4.4 LAB CHEMISTRY METHOD 10/26/2024 11:26 AM EDT [facility] Blood Venous blood specimen / Unknown Venipuncture / Unknown 10/26/2024 8:04 AM EDT 10/26/2024 8:04 AM EDT Franky Guerrero MD LAB BLOOD ORDERA BLES Final Result [facility] [address] [place] [address], * (ABNORMAL) Hemoglobin A1c (10/26/2024 8:04 AM EDT) Pathologist [facility] Hemoglobin A1C 7.4(H) <6.5 % LAB CHEMISTRY METHOD 10/26/2024 1:51 PM EDT [facility] Mean Bld Glu Estim. 166 mg/dL LAB CHEMISTRY METHOD 10/26/2024 1:51 PM EDT [facility] Blood Venous blood specimen / Unknown Venipuncture / Unknown 10/26/2024 8:04 AM EDT 10/26/2024 8:04 AM EDT Franky Guerrero MD LAB BLOOD ORDERA BLES Final Result [facility] [address] [place] [address], * (ABNORMAL) Comprehensive metabolic panel (10/26/2024 8:04 AM EDT) Sodium 138 133 - 145 mmol/L LAB CHEMISTRY METHOD 10/26/2024 11:26 AM [facility] Potassium 4.3 3.5 - 5.5 mmol/L LAB CHEMISTRY METHOD 10/26/2024 11:26 AM [facility] Chloride 106 96 - 110 mmol/L LAB CHEMISTRY METHOD 10/26/2024 11:26 AM [facility] CO2 24 21 - 32 mmol/L LAB CHEMISTRY METHOD 10/26/2024 11:26 AM [facility] Anion Gap 8 3 - 11 LAB CHEMISTRY METHOD 10/26/2024 11:26 AM [facility] Glucose 124(H) 70 - 100 mg/dL LAB CHEMISTRY METHOD 10/26/2024 11:26 AM [facility] BUN 19 5 - 25 mg/dL LAB CHEMISTRY METHOD 10/26/2024 11:26 AM [facility] Creatinine 0.95 0.50 - 1.10 mg/dL LAB CHEMISTRY METHOD 10/26/2024 11:26 AM [facility] eGFR 68 >=60 mL/min/1. 73m2 LAB CHEMISTRY METHOD 10/26/2024 11:26 AM [facility] Comment:Calculation based on the Chronic Kidney Disease Epidemiology Collaboration (CKD-EPI) equation refit without adjustment for race. BUN/Creatinine Ratio 20.0 LAB CHEMISTRY METHOD 10/26/2024 11:26 AM [facility] Calcium 9.4 8.5 - 10.5 mg/dL LAB CHEMISTRY METHOD 10/26/2024 11:26 AM [facility] AST (SGOT) 20 10 - 42 unit/L LAB CHEMISTRY METHOD 10/26/2024 11:26 AM [facility] ALT (SGPT) 31 10 - 60 unit/L LAB CHEMISTRY METHOD 10/26/2024 11:26 AM [facility] Alkaline Phosphatase 85 42 - 121 unit/L LAB CHEMISTRY METHOD 10/26/2024 11:26 AM [facility] Total Protein 7.6 6.0 - 8.0 g/dL LAB CHEMISTRY METHOD 10/26/2024 11:26 AM [facility] Albumin 3.9 3.2 - 5.0 g/dL LAB CHEMISTRY METHOD 10/26/2024 11:26 AM [facility] Total Bilirubin 0.5 0.0 - 1.4 mg/dL LAB CHEMISTRY METHOD 10/26/2024 11:26 AM [facility] Blood Venous blood specimen / Unknown Venipuncture / Unknown 10/26/2024 8:04 AM EDT 10/26/2024 8:04 AM EDT Franky Guerrero MD LAB BLOOD ORDERA BLES Final Result [facility] [address] [place] [address], * Pulmonary function testing: Spirometry, Spirometry with Bronchodilator (10/04/2024 8:01 AM EDT) Narrative Reed Wright MD - 10/07/2024 8:35 PM EDT Table formatting from the original result was not included. Images from the original result were not included. [facility] Pulmonary Lab [address] [place] [address] Pulmonary Functions Report Date of service: 10/04/24 Patient Name: Celia Villalta Date of : 1960 Age: 63 y.o. Gender: female Ordering Provider: Franky Guerrero MD Diagnosis listed on Order: Chronic cough, Dyspnea on exertion Reason for Exam: Order Questions Answers Reason for Exam: chronic cough; tobacco use Which PFTs would you like to perform? Spirometry,Spirometry with Bronchodilator SPIROMETRY: FEV1 is 74 % predicted and an FVC is 68 % predicted. The FEV1/FVC ratio is 108% of normal, no response to bronchodilators noted. LUNG VOLUMES: Total lung capacity (TLC): 71% predicted. Residual volume (RV): 88% predicted RV/TLC ratio is 126% of normal DIFFUSION CAPACITY: DLCO 84% predicted. DlCO/VA 132% of predicted COMPARISONS: INTERPRETATION: This pulmonary function test shows restrictive changes without any evidence of COPD or diffusion impairment eRed Wright MD us Franyk Guerrero MD PFT ORDERABLES Final Result * CT Lung Screening (10/03/2024 7:25 AM EDT) Anatomical Region Laterality Modality Chest Computed Tomogra phy 10/03/2024 11:2 6 AM EDT Impressions 10/03/2024 12:12 PM EDT No new or suspicious pulmonary nodules. Lung RADS 1-negative. Recommend continued screening with low-dose chest CT in 12 months. -------- FINAL REPORT -------- Dictated By: ADOLPH VAZQUEZ Dictated Date: 10/03/2024 11:26 ET Assigned Physician: ADOLPH VAZQUEZ Reviewed and Electronically Signed By: ADOLPH VAZQUEZ Signed Date: 10/03/2024 12:12 ET Workstation ID: [id number] Transcribed By: Self Edit Transcribed Date: 10/03/2024 11:49 ET Narrative 10/03/2024 12:12 PM EDT PROCEDURE: Chest CT INDICATION: Lung cancer screening, current smoker, 30 pack-year smoking history TECHNIQUE: Chest CT without contrast. Multi planar reformats were created and interpreted. The examination was performed utilizing dose reduction techniques. Total DLP 160 COMPARISON: 10/04/2023. FINDINGS: LUNGS/PLEURA: Central airways are patent. Elevated left diaphragm with left basilar atelectasis. No new or suspicious pulmonary nodules. No pleural effusion or pneumothorax. MEDIASTINUM: Thyroid gland is normal. No mediastinal or hilar lymphadenopathy. Esophagus is normal. Cardiac chambers are normal in size. No pericardial effusion. No significant coronary artery calcifications. CHEST WALL: No axillary lymphadenopathy or superficial hematoma. UPPER ABDOMEN:Hepatic steatosis. BONES: Bones are normal for age. Procedure Note Adolph Vazquez MD - 10/03/2024 PROCEDURE: Chest CT INDICATION: Lung cancer screening, current smoker, 30 pack-year smokinghistory TECHNIQUE: Chest CT without contrast. Multi planar reformats were createdand interpreted. The examination was performed utilizing dose reductiontechniques. Total DLP 160 COMPARISON: 10/04/2023. FINDINGS: LUNGS/PLEURA: Central airways are patent. Elevated left diaphragm withleft basilar atelectasis. No new or suspicious pulmonary nodules. Nopleural effusion or pneumothorax. MEDIASTINUM: Thyroid gland is normal. No mediastinal or hilarlymphadenopathy. Esophagus is normal. Cardiac chambers are normal insize. No pericardial effusion. No significant coronary arterycalcifications. CHEST WALL: No axillary lymphadenopathy or superficial hematoma. UPPER ABDOMEN:Hepatic steatosis. BONES: Bones are normal for age. IMPRESSION: No new or suspicious pulmonary nodules. Lung RADS 1-negative. Recommendcontinued screening with low-dose chest CT in 12 months. -------- FINAL REPORT -------- Dictated By: ADOLPH VAZQUEZ Dictated Date: 10/03/2024 11:26 ET Assigned Physician: ADOLPH VAZQUEZ Reviewed and Electronically Signed By: ADOLPH VAZQUEZ Signed Date: 10/03/2024 12:12 ET Workstation ID: [id number] Transcribed By: Self Edit Transcribed Date: 10/03/2024 11:49 ET us Nicole Boles MD IMG CT PROCEDURES Final Result * COLONOSCOPY Anesthesia - MAC; [facility] ENDOSCOPY (07/27/2024 12:24 PM EDT) Anatomical Region Laterality Modality Endoscopy 07/27/2024 12:0 7 PM EDT Impressions 07/27/2024 12:24 PM EDT - The entire examined colon is normal on direct and retroflexion views. - No specimens collected. Recommendation: - Discharge patient to home. - Repeat colonoscopy in 10 years for screening purposes. Narrative 07/27/2024 12:24 PM EDT [facility] GI Patient Name: Celia Villalta Procedure Date: 07/27/2024 12:07 PM Date of [...] the procedure, a History and Physical was performed, and patient medications and allergies were reviewed. The patient is competent. The risks and benefits of the procedure and the sedation options and risks were discussed with the patient. All questions were answered and informed consent was obtained. Patient identification and proposed procedure were verified by the physician, the nurse, the drain cleaner plumber and the studio technician in the pre-procedure area in the endoscopy suite. Mental Status Examination: alert and oriented. Airway Examination: normal oropharyngeal airway and neck mobility. Respiratory Examination: clear to auscultation. CV Examination: normal. Prophylactic Antibiotics: The patient does not require prophylactic antibiotics. Prior Anticoagulants: The patient has taken no anticoagulant or antiplatelet agents. ASA Grade Assessment: III - A patient with severe systemic disease. After reviewing the risks and benefits, the patient was deemed in satisfactory condition to undergo the procedure. The anesthesia plan was to use monitored anesthesia care (MAC). Immediately prior to administration of medications, the patient was re-assessed for adequacy to receive sedatives. The heart rate, respiratory rate, oxygen saturations, blood pressure, adequacy of pulmonary ventilation, and response to care were monitored throughout the procedure. The physical status of the patient was re-assessed after the procedure. After I obtained informed consent, the scope was passed under direct vision. Throughout the procedure, the patient's blood pressure, pulse, and oxygen saturations were monitored continuously. The Olympus Colonoscope was introduced through the anus and advanced to the cecum, identified by appendiceal orifice and ileocecal valve. The colonoscopy was performed without difficulty. The patient tolerated the procedure poorly due to the patient's body habitus, the patient's respiratory instability and the patient's comorbid medical conditions. The quality of the bowel preparation was excellent. Findings: The perianal and digital rectal examinations were normal. The entire examined colon appeared normal on direct and retroflexion views. Procedure Code(s): --- Professional --- G0121, Colorectal cancer screening; colonoscopy on individual not meeting criteria for high risk Diagnosis Code(s): --- Professional --- Z12.11, Encounter for screening for malignant neoplasm of colon CPT copyright 2020 [employer]. All rights reserved. The codes documented in this report are preliminary and upon pediatric surgeon review may be revised to meet current compliance requirements. Reyna Higgins MD 07/27/2024 12:24:04 PM This report has been signed electronically.Reyna Higgins MD Number of Addenda: 0 Note Initiated On: 07/27/2024 12:07 PM Scope Withdrawal Time: 0 hours 4 minutes 58 seconds Scope In: 12:15:05 PM Scope Out: 12:22:09 PM Endoscopy Department at [facility] - [address] [place] [phone] Procedure Note Reyna Higgins MD - 07/27/2024 [facility] GI Patient Name: Celia Villalta Procedure Date: 07/27/2024 12:07 PM Date of [...] the physician, the nurse, theanesthetist and the studio technician in the pre-procedure area in the [...] for malignantneoplasm of colon CPT copyright 2020 [employer]. All rights reserved. The codes documented in this report are preliminary and upon pediatric surgeon reviewmay be revised to meet current compliance requirements. Reyna Higgins MD 07/27/2024 12:24:04 PM This report has been signed electronically.Reyna Higgins MD Number of Addenda: 0 Note Initiated On: 07/27/2024 12:07 PM Scope Withdrawal Time: 0 hours 4 minutes 58 seconds Scope In: 12:15:05 PM Scope Out: 12:22:09 PM Endoscopy Department at [address] [phone] IMPRESSION: - The entire examined colon is normal on direct and retroflexion views. - No specimens collected. Recommendation: - Discharge patient to home. - Repeat colonoscopy in 10 years for screening purposes. Result [facility] Reyna Higgins MD GI~PROCEDURE ORDERABLES Fin al Result * Urine Albumin Creatinine Ratio (01/06/2024) [facility] Urine Albumin Creatinine Ratio Abstracted Result [facility] Provider HEALTH MAINTENANCE Final Result * Diabetes Eye Exam (12/24/2023) [facility] Diabetes: Annual Retina Eye Exam Abstracted Result [facility] Antony DIAS HEALTH MAINTENANCE Final Result * Pap Smear (06/15/2021) [facility] Pap smear No Interpretation , Abstracted Result [facility] Antony DIAS HEALTH MAINTENANCE Final Result * Hepatitis C Screening (12/20/2012) [facility] Hepatitis C Screening Abstracted Result [facility] Provider HEALTH MAINTENANCE Final Result from Last 3 Months or Most Recently Relevant to Health Maintenance Insurance [facility] Care Teams Supervisor [employer] Relationship Specialty Start Date End Date Franky Guerrero MD [address] [place] [address] PCP - General Internal Medicine 11/17/21
--- NOTE | 2024-11-01 08:11 | MHC.OFFVIS ---
Vital Signs 11/01/24 08:22 Height 5 ft 2 in Weight 254 lb BMI 46.5 BP 120/70 Intake Visit Reasons: [employer] annual exam Citrus Picker: Citrus Picker Present (Bindu) Accompanied by: Self / Same As Patient Allergies No Known Allergies (No Known Allergies*) Allergy (Verified 11/01/24 08:21) Is last menstrual period known: No Post menopausal: Yes Patient : No HPI Comments Details: Presenting for annual exam. No complaints. Last Pap/HPV was negative in 06/17 Last Mammogram was BI-RADS 1 in 09/17 Last Colonoscopy was done a month ago at [facility], the patient is due for another screening colonoscopy in 10 years [facility] Medical History Dyslipidemia Diabetes HTN (hypertension) Surgical History History of surgical removal of meniscus of knee History of hysteroscopy History of Family History Father Diabetes HTN (hypertension) Mother Diabetes Social History Household Members: Spouse Housing: House Alcohol intake: current Alcohol intake frequency: holidays/special occasions only Patient Tobacco Use Status: Current someday Tobacco user Cigarettes Per Day: 5 Years Smoked: 35 Patient : No Current occupational status: employed 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 Sexual orientation: Straight/Heterosexual Gender identity: Female Female Reproductive History Menstrual Age of Menarche: 13 control method: none Total pregnancies: 1 Full term: 1 Date of last pap smear: 06/06/21 (negative pap smear, negative hpv ) Date of Mammogram: 08/31/24 (bi rad 1) Review of Systems Const All systems reviewed & are unremarkable except as noted in HPI and below Card Reports as per HPI Resp Reports as per HPI GI Reports as per HPI and Reports no additional complaints Reports as per HPI Physical Exam Vital Signs: Last Vital Signs BP 120/70 11/01/24 08:22 BMI result Body Mass Index 46.5 Const General: cooperative, healthy appearing and comfortable Chest Chest palpation & inspection: normal inspection of the chest and normal palpation of entire chest wall Breast/axilla inspection: normal inspection of the breasts and normal inspection of the axillae Breast/axilla palpation: normal palpation of the breasts, normal palpation of the axillae and no axillary lymphadenopathy Resp Effort & Inspection: normal respiratory effort Auscultation: clear to auscultation bilaterally Percussion: percussion normal Cardio Palpation: normal PMI Rate: regular rate Rhythm: regular rhythm Heart sounds: no murmurs and no rubs Peripheral pulses: Peripheral pulses 2+ throughout GI Inspection: Yes normal to inspection Palpation (GI): Soft to palpation, nontender, no guarding, not rigid and No hepatosplenomegaly present Percussion: Yes normal to percussion Auscultation: normal bowel sounds Rectal Exam - Female: deferred General: Yes bladder normal to palpation External Female Exam: No lesion Speculum Exam - Vagina: normal appearance of the vagina, normal palpation, normal vaginal discharge and not erythematous Speculum Exam - Cervix: normal appearance of the cervix and normal palpation Bimanual exam- vagina & uterus: normal bimanual exam, normal palpation, uterine size normal, bladder normal to palpation, consistency normal and normal palpation Bimanual Exam- Adnexa, other: normal adnexae, no masses and no tenderness Assessment & Plan Assessment & Plan (1) Well woman exam: Code(s): Z01.419 - Encounter for gynecological examination (general) (routine) without abnormal findings Category: Medical Plan: Co testing not indicated this year. Counseled the patient about the recommended dietary allowance of 1200 mg of Calcium & 600 IU of vitamin D. Instructions given the patient to schedule next screening Mammogram in 09/18. The patient was instructed to perform monthly self-breast exams and schedule annual exam in a year. All questions answered and the patient verbalized understanding. Coding Level of Care Code Est Pt Prev Care 40-64y(35486) Diagnoses Well woman exam Z01.419
[2024-11-01 08:22] VITALS: BP 120/70; BMI 46.5
== END 2024-11-01 08:44 | disposition home or self-care (01) ==
LOC: HO.HWS 08:00
PROVIDERS: PCP Family Medicine; Visit Provider Obstetrics & Gynecology
DX: Z01.419 Encounter for gynecological examination (general) (routine) without abnormal findings (principal)
CPT/HCPCS: 99396; 99459